=== PATIENT | male | born 1940 | race Caucasian/White ===

== ENCOUNTER 2022-03-20 09:16 | Inpatient (IN) | payer MEDICARE ==
[~2022-03-20] VITALS: Ht 185.4 cm; Wt 111.1 kg
[2022-03-20 10:00] LABS: HEMOGLOBIN 16.6 gm/dl (14.0-17.5); RED BLOOD COUNT 5.76 M/UL (4.20-5.50); WHITE BLOOD COUNT 9.6 K/UL (4.5-11.0)
[2022-03-20] MEDS ORDERED: ONDANSETRON ODT4 MG PO (16:23)
[2022-03-21 03:07] LABS: HEMOGLOBIN 14.1 gm/dl (14.0-17.5); RED BLOOD COUNT 4.99 M/UL (4.20-5.50); WHITE BLOOD COUNT 6.8 K/UL (4.5-11.0)
[2022-03-22 06:59] LABS: HEMOGLOBIN 12.9 gm/dl (14.0-17.5); RED BLOOD COUNT 4.51 M/UL (4.20-5.50); WHITE BLOOD COUNT 5.4 K/UL (4.5-11.0)
[2022-03-23 03:03] LABS: HEMOGLOBIN 12.7 gm/dl (14.0-17.5); RED BLOOD COUNT 4.48 M/UL (4.20-5.50); WHITE BLOOD COUNT 5.8 K/UL (4.5-11.0)
--- NOTE | 2022-03-23 11:12 | NUR ---
CALLED SURGERY AT 0730 TO INFORM THEM THAT PATIENT'S COVID TEST OFFICIALLY RAN OUT AT 1000 TODAY. RECIEVED NO NEW ORDER FROM PROVIDER TO DO NEW TEST BEFORE PROCEDURE. HAL.
[2022-03-23] MEDS ORDERED: INVANZ 1 GM VIAL1 GM IM ×2 (15:28→16:21)
[2022-03-23] MEDS ORDERED: PHENERGAN 12.12.5 M1 PO (17:39)
[2022-03-23] MEDS ORDERED: K-TAB ER20 MEQ PO ×2 (17:39→17:56)
[2022-03-23] MEDS ORDERED: PROTONIX 40 MG40 M1 PO (17:39)
== END 2022-03-23 19:18 | disposition home or self-care (01) | DRG 389 ==
LOC: ER1 09:16 → MED SURG 4 12:46 → CDU 12:46 → MED SURG 4 20:38
PROVIDERS: Internal Medicine; Internal Medicine Gastroenterology; Physician Assistant; ADMIT Internal Medicine
PROC: 0DB78ZX Excision of Stomach, Pylorus, Via Natural or Artificial Opening Endoscopic, Diagnostic (ICD-10-PCS; 2022-03-23)
PROC: 0DB38ZX Excision of Lower Esophagus, Via Natural or Artificial Opening Endoscopic, Diagnostic (ICD-10-PCS; principal; 2022-03-23 15:15)
DX: K56.600 Partial intestinal obstruction, unspecified as to cause (principal); E87.1 Hypo-osmolality and hyponatremia; N17.9 Acute kidney failure, unspecified; Z20.822 Contact with and (suspected) exposure to COVID-19; N30.00 Acute cystitis without hematuria; N20.0 Calculus of kidney; N28.89 Other specified disorders of kidney and ureter; E78.5 Hyperlipidemia, unspecified; K25.9 Gastric ulcer, unspecified as acute or chronic, without hemorrhage or perforation; E87.6 Hypokalemia; R59.1 Generalized enlarged lymph nodes; K21.9 Gastro-esophageal reflux disease without esophagitis; K44.9 Diaphragmatic hernia without obstruction or gangrene; K22.2 Esophageal obstruction; K76.89 Other specified diseases of liver; E86.0 Dehydration; B96.1 Klebsiella pneumoniae [K. pneumoniae] as the cause of diseases classified elsewhere; R79.89 Other specified abnormal findings of blood chemistry; Z85.51 Personal history of malignant neoplasm of bladder; Z90.79 Acquired absence of other genital organ(s); Z83.3 Family history of diabetes mellitus
CPT/HCPCS: 0240U; 70450; 71045; 80048; 80053; 81001; 82550; 82553; 83605; 83690; 83735; 84484; 85025; 85027; 87040; 87077; 87086; 87186; 93005; 96374; 96375; 96376; 99285; C9113; J1335; J1644; J2405; J2704; J7040

== ENCOUNTER → 2022-03-24 | Outpatient (CLI) | payer MEDICARE ==
[~2022-03-24] VITALS: Ht 182.9 cm; Wt 111.1 kg
[~2022-03-24] MED LIST: INVANZ 1 GM VIAL1 GM IM; K-TAB ER20 MEQ PO; ONDANSETRON ODT4 MG PO; PHENERGAN 12.12.5 M1 PO; PROTONIX 40 MG40 M1 PO
== END ==
LOC: OPSV 13:35
DX: N39.0 Urinary tract infection, site not specified (principal)
CPT/HCPCS: 96372; J1335

== ENCOUNTER → 2022-03-25 | Outpatient (CLI) | payer MEDICARE ==
[~2022-03-25] VITALS: Ht 182.9 cm; Wt 111.1 kg
== END ==
LOC: OPSV 14:00
DX: N39.0 Urinary tract infection, site not specified (principal)
CPT/HCPCS: 96372; J1335

== ENCOUNTER → 2022-03-27 | Outpatient (CLI) | payer MEDICARE | LOC: EROP 06:22 → OPSV 07:00 | DX: N39.0 Urinary tract infection, site not specified (principal) | CPT/HCPCS: 96372; J1335 ==

== ENCOUNTER → 2022-03-28 | Outpatient (CLI) | payer MEDICARE ==
[~2022-03-28] VITALS: Ht 182.9 cm; Wt 111.1 kg
== END ==
LOC: OPSV 07:05
DX: N39.0 Urinary tract infection, site not specified (principal)
CPT/HCPCS: 96372; J1335

== ENCOUNTER → 2022-03-29 | Outpatient (CLI) | payer MEDICARE | LOC: OPSV 07:11 | DX: N39.0 Urinary tract infection, site not specified (principal) | CPT/HCPCS: 96372; J1335 ==

== ENCOUNTER → 2022-03-30 | Outpatient (CLI) | payer MEDICARE ==
[~2022-03-30] VITALS: Ht 182.9 cm; Wt 111.1 kg
== END ==
LOC: OPSV 07:06
DX: N39.0 Urinary tract infection, site not specified (principal)
CPT/HCPCS: 96372; J1335

== ENCOUNTER → 2022-03-31 | Outpatient (CLI) | payer MEDICARE | LOC: OPSV 07:05 | DX: N39.0 Urinary tract infection, site not specified (principal) | CPT/HCPCS: 96372; J1335 ==

== ENCOUNTER → 2022-04-01 | Outpatient (CLI) | payer MEDICARE ==
[~2022-04-01] VITALS: Ht 182.9 cm; Wt 111.1 kg
== END ==
LOC: OPSV 07:03
DX: N39.0 Urinary tract infection, site not specified (principal)
CPT/HCPCS: 96372; J1335

== ENCOUNTER → 2022-04-03 | Outpatient (CLI) | payer MEDICARE | LOC: OPSV 06:35 → EROP 06:54 → OPSV 07:00 | DX: N39.0 Urinary tract infection, site not specified (principal) | CPT/HCPCS: 96372; J1335 ==

== ENCOUNTER → 2022-04-04 | Outpatient (CLI) | payer MEDICARE ==
[~2022-04-04] VITALS: Ht 182.9 cm; Wt 111.1 kg
== END ==
LOC: OPSV 07:07
DX: N39.0 Urinary tract infection, site not specified (principal)
CPT/HCPCS: 96372; J1335

== ENCOUNTER → 2022-04-07 | Outpatient (CLI) | payer MEDICARE ==
[2022-04-07 09:53] LABS: HEMOGLOBIN 14.1 gm/dl (14.0-17.5); RED BLOOD COUNT 4.93 M/UL (4.20-5.50)
== END ==
LOC: LAB 09:22
PROVIDERS: Internal Medicine
DX: N39.0 Urinary tract infection, site not specified (principal); N20.0 Calculus of kidney
CPT/HCPCS: 80053; 81001; 85025; 87086

== ENCOUNTER → 2022-05-10 | Day surgery (SDC) | payer MEDICARE ==
[~2022-05-10] MED LIST changes: +DAILY VALUE1 EACH PO; +FISH OIL 1,0001 EACH PO; +VITAMIN B12 OTC
== END | disposition home or self-care (01) ==
LOC: OR 07:16
DX: Z12.11 Encounter for screening for malignant neoplasm of colon (principal); K63.5 Polyp of colon; K62.1 Rectal polyp; K57.30 Diverticulosis of large intestine without perforation or abscess without bleeding; K29.70 Gastritis, unspecified, without bleeding; B96.81 Helicobacter pylori [H. pylori] as the cause of diseases classified elsewhere; K64.2 Third degree hemorrhoids; K22.2 Esophageal obstruction; K44.9 Diaphragmatic hernia without obstruction or gangrene; K21.9 Gastro-esophageal reflux disease without esophagitis
CPT/HCPCS: J2704; J7040